=== PATIENT | male | born 1990 | race Caucasian/White ===

== ENCOUNTER 2018-03-09 09:20 | Emergency (ER) | payer SELFPAY ==
[~2018-03-09] VITALS: Ht 170.2 cm; Wt 59.0 kg
[2018-03-09] MEDS ORDERED: HYDROCODONE/ACETAMINOPHEN 5-325 MG TABLET PO ONE (10:00)
[2018-03-09] MEDS ORDERED: IBUPROFEN 600 MG TABLET PO ONE (10:00)
[2018-03-09 13:05] VITALS: BP 136/81
== END 2018-03-09 14:00 | disposition home or self-care (01) ==
LOC: EMS 09:21
DX: S92.192A Other fracture of left talus, initial encounter for closed fracture (principal); X50.1XXA Overexertion from prolonged static or awkward postures, initial encounter; Y93.79 Activity, other specified sports and athletics; Y92.89 Other specified places as the place of occurrence of the external cause; Y99.8 Other external cause status
CPT/HCPCS: 73700; 99284